=== PATIENT | male | born 2000 | race Caucasian/White ===

== ENCOUNTER 2023-10-06 00:04 | Emergency (ER) | payer OTHER ==
[~2023-10-06] VITALS: Ht 185.4 cm; Wt 109.1 kg
[2023-10-06 00:16] VITALS: TEMP 98.6
[2023-10-06] MEDS ORDERED: droPERidol 2.5 MG/ML 2 ML VIAL IV ONE (00:45)
[2023-10-06] MEDS ORDERED: NS 1,000 ML IV ONE (00:45)
[2023-10-06 00:49] LABS: BASO # 0.1 K/mm3 (0.0-0.2); BASO % 0.5 % (0.0-2.0); EOS # 0.8 K/mm3 (0.0-0.7); EOS % 8.9 % (0.0-4.0); GRAN # 5.3 K/mm3 (1.4-6.5); GRAN % 56.9 % (42.2-75.2); LYMPH # 2.4 K/mm3 (1.2-3.4); LYMPH % 25.6 % (20.0-51.0); MEAN CELL VOLUME 86 fl (80.0-100.0); MEAN CORPUSCULAR HEMOGLOBIN 30 pg (27-31); MEAN CORPUSCULAR HGB CONC 35 g/dl (33.0-37.0); MEAN PLATELET VOLUME 10.3 fl (7.4-10.4); MONO # 0.7 K/mm3 (0.1-0.6); PLATELET COUNT 249 K/mm3 (130-400); RED BLOOD COUNT 5.38 M/mm3 (4.20-5.60); REDCELL DISTRIBUTION WIDTH-CV 11.9 % (11.5-14.5)
[2023-10-06] MEDS ORDERED: Mag/Al Hydrox/Simeth Susp 30 ML CUP PO ONE (01:15)
[2023-10-06 01:16] LABS: ALBUMIN 4.3 g/dL (3.5-5.0); BILIRUBIN,TOTAL 0.2 mg/dL (0.2-1.2); C-REACTIVE PROTEIN 0.56 mg/dL (0.00-0.50); CALCIUM 9.7 mg/dL (8.4-10.2); CREATININE, serum 1.05 mg/dL (0.72-1.25); POTASSIUM 3.9 mEq/L (3.5-4.5); TOTAL PROTEIN 7.6 g/dl (6.2-8.1)
[2023-10-06] MEDS ORDERED: Famotidine 20 MG TAB PO ONE (01:30)
[2023-10-06 01:52] LABS: PH 5.5 (5.0-8.5); URINE APPEARANCE CLOUDY (CLEAR/HAZY); URINE BLOOD NEGATIVE (NEGATIVE); URINE COLOR YELLOW (YELLOW); URINE GLUCOSE NEGATIVE (NEGATIVE); URINE KETONE TRACE (NEGATIVE); URINE NITRATE NEGATIVE (NEGATIVE); URINE PROTEIN(semi-quant) NEGATIVE (NEGATIVE); URINE UROBILINOGEN 0.2 E.U/dL (0.2-1.0)
[2023-10-06 01:57] LABS: COLLECTION METHOD CLEAN CATCH
[2023-10-06] MEDS ORDERED: PRIL40 PO (01:59)
[2023-10-06] MEDS ORDERED: Home Ondansetron ODT 4 MG #2 ODT/PACK PO ONE (02:00)
[2023-10-06 02:09] VITALS: BP 145/90; PULSE 80
[2023-10-06] MEDS ORDERED: ZOFRAN ODT4 MG PO (03:06)
== END 2023-10-06 02:09 | disposition home or self-care (01) ==
LOC: COL.ER 00:04 → EDBD 00:04 → COL.ER 02:09
PROVIDERS: Nurse Practitioner Primary Care
DX: K52.9 Noninfective gastroenteritis and colitis, unspecified (principal)
CPT/HCPCS: J1790; J7030